=== PATIENT | female | born 1995 | race Caucasian/White ===

== ENCOUNTER → 2016-12-01 | Emergency (ER) | payer OTHER ==
[~2016-12-01] MED LIST: Azithromycin TAB* 250 MG PO ONE; Lidocaine 1% INJ* 10 MG/ML 30 ML SDV ONE; Norgestrel/Ethinyl Estrad TAB* 0.5 MG/0.05 MG PO ONE; Ondansetron ODT TAB* 4 MG PO ONE; Raltegravir* 400 MG TAB PO ONE; Tenofovir/Emtricitabine(*) TAB PO ONE; cefTRIAXone VIAL(*) 250 MG VIAL IM ONE; metroNIDAZOLE TAB* 250 MG PO ONE
[2016-12-01 12:47] VITALS: BP 133/88
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
[2016-12-01 15:51] LABS: Hematocrit 42 % (35-47); Mean Corpuscular HGB Conc 34 g/dl (31-36); Mean Corpuscular Hemoglobin 33 pg (27-31); Mean Corpuscular Volume 99 fL (80-97); Mean Platelet Volume 8 um3 (7.4-10.4); Red Blood Count 4.23 10^6/ul (4.0-5.4); Red Cell Distribution Width 13 % (10.5-15); White Blood Count 9.5 10^3/ul (3.5-10.8)
[2016-12-01 16:16] LABS: Albumin 4.5 g/dL (3.2-5.2); BUN/Creatinine Ratio 15.6 (8-20); Calcium 9.5 mg/dL (8.6-10.3); EGFR African American 101.6 (>60); Potassium 3.7 mmol/L (3.5-5.0); Total Bilirubin 0.4 mg/dL (0.2-1.0); Total Protein 7.5 g/dL (6.4-8.9)
[2016-12-01 16:56] LABS: Manual Entry Verification MD; Rapid HIV INT CONT QC Line Present; Rapid HIV Kit Lot# F209005
[2016-12-01 18:00] LABS: Urine Bilirubin Negative (Negative); Urine Glucose 2+(150 mg/dL) (Negative); Urine Nitrite Negative (Negative)
== END | disposition home or self-care (01) ==
LOC: ED 12:33
DX: Z04.41 Encounter for examination and observation following alleged adult rape (principal); S00.83XA Contusion of other part of head, initial encounter; S40.012A Contusion of left shoulder, initial encounter; S50.12XA Contusion of left forearm, initial encounter; S50.11XA Contusion of right forearm, initial encounter; S20.229A Contusion of unspecified back wall of thorax, initial encounter; S20.01XA Contusion of right breast, initial encounter; S30.1XXA Contusion of abdominal wall, initial encounter; S70.02XA Contusion of left hip, initial encounter; S70.01XA Contusion of right hip, initial encounter; S80.02XA Contusion of left knee, initial encounter; S80.01XA Contusion of right knee, initial encounter; Y09 Assault by unspecified means; Y92.89 Other specified places as the place of occurrence of the external cause
CPT/HCPCS: 36415; 80053; 81003; 84702; 85025; 86703; 86803; 87340; 87491; 87591; 99284; A9270-GY; J0696

== ENCOUNTER 2016-12-29 21:40 | Inpatient (IN) | payer OTHER ==
[2016-12-29 22:02] LABS: Hematocrit 43 % (35-47); Hemoglobin 14.3 g/dl (12.0-16.0); Mean Corpuscular HGB Conc 33 g/dl (31-36); Mean Corpuscular Hemoglobin 33 pg (27-31); Mean Corpuscular Volume 98 fL (80-97); Mean Platelet Volume 8 um3 (7.4-10.4); Red Blood Count 4.35 10^6/ul (4.0-5.4); Red Cell Distribution Width 13 % (10.5-15); White Blood Count 5.9 10^3/ul (3.5-10.8)
[2016-12-29 22:18] LABS: Acetaminophen < 15 mcg/mL; Alcohol 258 mg/dL (<10); Salicylate < 2.50 mg/dL (<30)
[2016-12-29 22:20] LABS: ALT 15 U/L (7-52); AST 22 U/L (13-39); Albumin 4.2 g/dL (3.2-5.2); Alkaline Phosphatase 62 U/L (34-104); Anion Gap 8 mmol/L (2-11); BUN/Creatinine Ratio 10.3 (8-20); Blood Urea Nitrogen 8 mg/dL (6-24); CO2 Carbon Dioxide 22 mmol/L (22-32); Calcium 8.5 mg/dL (8.6-10.3); Chloride 109 mmol/L (101-111); EGFR African American 119.9 (>60); EGFR Non-African American 93.2 (>60); Globulin 3.1 g/dL (2-4); Glucose 93 mg/dL (70-100); Potassium 3.7 mmol/L (3.5-5.0); Sodium 139 mmol/L (133-145); Total Protein 7.3 g/dL (6.4-8.9)
[2016-12-29 22:29] LABS: TSH (Thyroid Stimulating Horm) 1.68 mcIU/mL (0.34-5.60)
--- NOTE | 2016-12-30 00:01 | ED ---
Karina Ortega Claudia, scribed for Benedicto Sanz MD on 12/29/16 at 2143 . Psychiatric Complaint - HPI Summary HPI Summary: 21 year old female presents to the ED via [place] [facility] with manic Sx. PMHx of depression is noted. Pt is visibly stuporous. Pt has a superficial laceration to her right arm from cutting herself with a razor blade. 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 Level 5 stuporous - History Of Current Complaint Hx Obtained From: EMS, Other: - [place] Onset/Duration: Sudden Onset, Lasting Hours, Still Present Timing: Intermittent Episode Lasting Character: Manic - Allergies/Home Medications Allergies/Adverse Reactions: Allergies Allergy/AdvReac Type Severity Reaction Status Date / Time Amoxicillin Allergy Severe Rash And Verified 12/01/16 12:37 Itching PMH/Surg Hx/FS Hx/Imm Hx Previously Healthy: Yes Endocrine/Hematology History: Reports: Hx Unexplained Bleeding - pt states she bruises easily Denies: Hx Anticoagulant Therapy Cardiovascular History: Denies: Hx Hypertension Respiratory History: Denies: Hx Asthma Neurological History: Reports: Other Neuro Impairments/Disorders - Neurogenic syncope Psychiatric History: Reports: Hx Depression - Immunization History Date of Tetanus Vaccine: UTD Date of Influenza Vaccine: 2014 - Family History Known Family History: Negative: Cardiac Disease, Hypertension, Diabetes - Social History Occupation: Student Alcohol Use: Occasionally Alcohol Amount: Recently quit - used to drink daily Hx Substance Use: Yes Substance Use Type: Reports: Marijuana Substance Use Comment - Amount & Last Used: daily Hx Tobacco Use: No Smoking Status (MU): Never Smoked Tobacco Review of Systems - ROS Summary Review of Systems Summary: level 5 caveat stuporous Negative: Fever Eyes: Negative ENT: Negative Cardiovascular: Negative Respiratory: Negative Gastrointestinal: Negative Genitourinary: Negative Musculoskeletal: Negative Skin: Negative Neurological: Negative Positive: Other - manic All Other Systems Reviewed And Are Negative: Yes Physical Exam - Summary Physical Exam Summary: Level 5 caveat- stuporous Triage Information Reviewed: Yes Vital Signs On Initial Exam: Initial Vitals Temp Pulse Resp BP Pulse Ox 98.4 F 70 18 124/73 97 12/29/16 22:03 12/29/16 22:03 12/29/16 22:03 12/29/16 22:03 12/29/16 22:03 Vital Signs Reviewed: Yes Appearance: Positive: Well-Appearing, No Pain Distress Skin: Positive: Warm, Skin Color Reflects Adequate Perfusion, Dry, Other - multiple linear not full thickness superficial abrasions to her left upper arm with no active bleeding Head/Face: Positive: Normal Head/Face Inspection Eyes: Positive: EOMI, ESTEPHANIA ENT: Positive: Normal ENT inspection Neck: Positive: Supple, Nontender Respiratory/Lung Sounds: Positive: Clear to Auscultation, Breath Sounds Present Cardiovascular: Positive: RRR Abdomen Description: Positive: Nontender, Soft Musculoskeletal: Positive: Normal, Strength/ROM Intact Neurological: Positive: Normal, Sensory/Motor Intact, Alert, Oriented to Person Place, Time Psychiatric: Positive: Affect/Mood Appropriate Diagnostics - Vital Signs Vital Signs Temp Pulse Resp BP Pulse Ox 12/29/16 22:03 98.4 F 70 18 124/73 97 - Laboratory Lab Results: Lab Results 12/29/16 12/29/16 Range/Units 21:50 21:50 WBC 5.9 (3.5-10.8) 10^3/ul RBC 4.35 (4.0-5.4) 10^6/ul Hgb 14.3 (12.0-16.0) g/dl Hct 43 (35-47) % MCV 98 H (80-97) fL MCH 33 H (27-31) pg MCHC 33 (31-36) g/dl RDW 13 (10.5-15) % Plt Count 245 (150-450) 10^3/ul MPV 8 (7.4-10.4) um3 Neut % (Auto) 49.6 (38-83) % Lymph % (Auto) 38.1 (25-47) % Colbert % (Auto) 9.9 H (1-9) % Eos % (Auto) 1.5 (0-6) % Baso % (Auto) 0.9 (0-2) % Absolute Neuts (auto) 2.9 (1.5-7.7) 10^3/ul Absolute Lymphs (auto) 2.2 (1.0-4.8) 10^3/ul Absolute Monos (auto) 0.6 (0-0.8) 10^3/ul Absolute Eos (auto) 0.1 (0-0.6) 10^3/ul Absolute Basos (auto) 0.1 (0-0.2) 10^3/ul Absolute Nucleated RBC 0.01 10^3/ul Nucleated RBC % 0.1 Sodium 139 (133-145) mmol/L Potassium 3.7 (3.5-5.0) mmol/L Chloride 109 (101-111) mmol/L Carbon Dioxide 22 (22-32) mmol/L Anion Gap 8 (2-11) mmol/L BUN 8 (6-24) mg/dL Creatinine 0.78 (0.51-0.95) mg/dL Est GFR ( Amer) 119.9 (>60) Est GFR (Non-Af Amer) 93.2 (>60) BUN/Creatinine Ratio 10.3 (8-20) Glucose 93 (70-100) mg/dL Calcium 8.5 L (8.6-10.3) mg/dL Total Bilirubin 0.20 (0.2-1.0) mg/dL AST 22 (13-39) U/L ALT 15 (7-52) U/L Alkaline Phosphatase 62 (34-104) U/L Total Protein 7.3 (6.4-8.9) g/dL Albumin 4.2 (3.2-5.2) g/dL Globulin 3.1 (2-4) g/dL Albumin/Globulin Ratio 1.4 (1-3) TSH 1.68 (0.34-5.60) mcIU/mL Beta HCG, Quant < 0.60 mIU/mL Salicylates < 2.50 (<30) mg/dL Acetaminophen < 15 mcg/mL Serum Alcohol 258 H (<10) mg/dL Result Diagrams: 12/29/16 21:50 12/29/16 21:50 Lab Statement: Any lab studies that have been ordered have been reviewed, and results considered in the medical decision making process. Course/Dx - Course Assessment/Plan: MHE PENDING AT SHIFT CHANGE STABLE - Differential Dx/Clinical Impression Provider Diagnosis: Mental health problem - Physician Notifications Patient Is Medically Stable For: Psych Evaluation - 22:00 Discharge - Discharge Plan Condition: Stable Disposition: HOME Referrals: [facility] [Primary Care Provider] - The documentation as recorded by the Karina gaffney Claudia accurately reflects the service I personally performed and the decisions made by me, Benedicto Sanz MD.
--- NOTE | 2016-12-30 15:35 | CONSULT ---
Consult Consult: Gloria Hair had some upsetting news yesterday and presented to the ED after having cut herself. She was medically cleared on a previous shift and underwent a MHE. They felt that for her own safety she should be involuntarily admitted to the Unit. I agreed for her safety and she was admitted in stable condition with a diagnosis of depression and adjustment disorder.
[2016-12-30] MEDS: Tenofovir/Emtricitabine(*) TAB PO SCH (18:05)
[2016-12-30] MEDS: buPROPion SR TAB.SR* 150 MG PO SCH (18:05)
[2016-12-30] MEDS: ETH ESTRADIOL PO SCH (18:06)
[2016-12-30] MEDS: LEVONORGESTREL PO SCH (18:06)
[2016-12-30] MEDS: Raltegravir* 400 MG TAB PO SCH (21:16)
[2016-12-30] MEDS: diPHENhydraMINE PO* 50 MG PO PRN (21:18)
[2016-12-31] MEDS: Raltegravir* 400 MG TAB PO SCH (09:18)
[2016-12-31] MEDS: buPROPion SR TAB.SR* 150 MG PO SCH (09:19)
[2016-12-31] MEDS: Tenofovir/Emtricitabine(*) TAB PO SCH (09:20)
[2016-12-31] MEDS: LEVONORGESTREL PO SCH (09:22)
[2016-12-31] MEDS: ETH ESTRADIOL PO SCH (09:22)
[2016-12-31] MEDS: diPHENhydraMINE PO* 50 MG PO PRN (20:19)
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
[2017-01-01] MEDS: LEVONORGESTREL PO SCH (10:08)
[2017-01-01] MEDS: BuPROPion XL* 150 MG TAB.XL PO SCH (10:08)
[2017-01-01] MEDS: ETH ESTRADIOL PO SCH (10:08)
[2017-01-01] MEDS: Disulfiram TAB* 250 MG PO SCH (10:08)
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
[2017-01-01] MEDS: diPHENhydraMINE PO* 50 MG PO PRN (20:46)
[2017-01-02] MEDS: BuPROPion XL* 150 MG TAB.XL PO SCH (09:03)
[2017-01-02] MEDS: Disulfiram TAB* 250 MG PO SCH (09:04)
[2017-01-02] MEDS: ETH ESTRADIOL PO SCH (09:05)
[2017-01-02] MEDS: LEVONORGESTREL PO SCH (09:05)
--- NOTE | 2017-01-02 14:35 | PN ---
Subjective - Subjective Service Type: 84206 Hosp care 15 min low complexity Subjective: The patient is interviewed in the presence of her mom, who is visiting. The patient is tearful but cooperative and signs the Health Care Proxy that her mother brought in for her. She does complain of anxiety and requests gabapentin , however, she is counselled that more medications are not likely to be what she needs at this time. The patient continues to deny SI and remains willing to accept transfer to a drug rehab. Objective - Appearance Appearance: Well Developed/Nourished Dysmorphic Features: No Hygiene: Normal Grooming: Well Kept - Behavior Psychomotor Activities: Normal Exhibits Abnormal Movement: No - Attitude and Relatedness Attitude and Relatedness: Cooperative Eye Contact: Good - Speech Quality: Unpressured Latencies: Normal Quantity: Appropriate - Mood Patient's Decription of Mood: "Anxious" - Affect Observed Affect: Tearful Affect Consistent with: Dysphoria - Thought Process Patient's Thought Process: Coherent Thought Content: No Passive Wish, No Suicidal Planning, No Homicidal Ideation, No Paranoid Ideation - Sensorium Experiencing Hallucinations: No, Sensorium is Clear Type of Hallucinations: Visual: No, Auditory: No, Command: No - Level of Consciousness Level of Consciousness: Alert Orientation: Yes Intact, Yes Orientated to Time, Yes Orientated to Place, Yes Orientated to Person - Impulse Control Impulse Control: Tenuous - Insight and Judgement Insight and Judgement: Fair - Group Participation Particating in Group Activities: Yes - Medication Management Medication Management Adherence: Yes Assessment - Assessment Merits Inpatient Hospitalization: Consolidate Improvements, Pending Safe DC Plan 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 single, white female with a history of depression, rampant substance abuse and risky sexual and illegal behaviors admitted after cutting her own arm and making suicidal statements to friends at [facility]. Plan - Plan Treatment Plan: Name: REHAN MEDEIROS Birthdate: 1995 [id number] The patient is tolerating bupropion XL 150mg PO qam and antabuse 250mg PO qday. She continues to deny SI. She has been accepted to a women's substance abuse program in [place] and is pending transfer early next week. Parents are supportive of this plan. Continued Medication Management: Start Medication Medications: Current Medications Bupropion HCl (Wellbutrin Xl *) 150 mg PO QAM JERRELL PRN Reason: Protocol Last Admin: 01/02/17 09:03 Dose: 150 mg Diphenhydramine HCl (Benadryl Po*) 50 mg PO BEDTIME PRN PRN Reason: INSOMNIA Last Admin: 01/01/17 20:46 Dose: 50 mg Disulfiram (Antabuse Tab*) 250 mg PO DAILY [facility] Last Admin: 01/02/17 09:04 Dose: 250 mg Levonorgestrel & Eth Estradiol [Falmina 0.1-20 Mg-Mcg] 1 tab PO DAILY [facility] Last Admin: 01/02/17 09:05 Dose: Not Given - Discharge Plan Discharge Plan: Drug/Alcohol Rehab
[2017-01-02] MEDS: diPHENhydraMINE PO* 50 MG PO PRN (20:20)
[2017-01-03] MEDS: BuPROPion XL* 150 MG TAB.XL PO SCH (09:36)
[2017-01-03] MEDS: Disulfiram TAB* 250 MG PO SCH (09:37)
[2017-01-03] MEDS: ETH ESTRADIOL PO SCH (11:02)
[2017-01-03] MEDS: LEVONORGESTREL PO SCH (11:02)
[2017-01-03 12:06] LABS: Urine Bacteria Absent (Absent); Urine Bilirubin Negative (Negative); Urine Glucose Negative (Negative); Urine Nitrite Negative (Negative)
[2017-01-03 12:37] LABS: Benzodiazepine Urine Screen None Detected (None Detect)
[2017-01-03] MEDS: diPHENhydraMINE PO* 50 MG PO PRN (20:55)
[2017-01-03] MEDS ORDERED: Acetaminophen TAB* 325 MG ONE (23:11)
[2017-01-03] MEDS ORDERED: Acetaminophen TAB* 325 MG PO PRN (23:15)
[2017-01-04] MEDS: Disulfiram TAB* 250 MG PO SCH (09:31)
[2017-01-04] MEDS: BuPROPion XL* 150 MG TAB.XL PO SCH (09:31)
[2017-01-04] MEDS: ETH ESTRADIOL PO SCH (10:15)
[2017-01-04] MEDS: LEVONORGESTREL PO SCH (10:15)
--- NOTE | 2017-01-04 19:36 | PN ---
Subjective - Subjective Subjective: Rehan endorses ok mood, despite insomnia, and an upsetting interaction with her father earlier. She denies SI or urges for sib or alcohol/drug withdrawal symptoms. She remains motivated for transfer to [facility] in [place] on Thursday AM. Per staff, she re,gela adherent to unit's routines. Objective - Appearance Appearance: Healthy Appearing Dysmorphic Features: No Hygiene: Normal Grooming: Well Kept - Behavior Psychomotor Activities: Normal Exhibits Abnormal Movement: No - Attitude and Relatedness Attitude and Relatedness: Cooperative Eye Contact: Fair - Speech Quality: Unpressured Latencies: Normal Quantity: Appropriate - Mood Patient's Decription of Mood: "Okay" - Affect Observed Affect: Good - Thought Process Patient's Thought Process: Coherent, Goal Directed Thought Content: No Passive Wish, No Suicidal Planning, No Homicidal Ideation, No Paranoid Ideation - Sensorium Experiencing Hallucinations: No, Sensorium is Clear - Level of Consciousness Level of Consciousness: Alert Orientation: Yes Intact - Impulse Control Impulse Control: Intact - Insight and Judgement Insight and Judgement: Poor - Group Participation Particating in Group Activities: Yes - Medication Management Medication Management Adherence: Yes Assessment - Assessment Merits Inpatient Hospitalization: Consolidate Improvements, For Discharge Planning 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 Clinical Impression: reporting lower distress level, denying suicidality, remains motivated to go to rehab Plan - Plan Treatment Plan: Name: REHAN MEDEIROS Birthdate: 1995 [id number] Continued Medication Management: Start Medication Medications: Current Medications Acetaminophen (Tylenol Tab*) 650 mg PO Q6H PRN PRN Reason: FEVER/PAIN Bupropion HCl (Wellbutrin Xl *) 150 mg PO QAM [facility] PRN Reason: Protocol Last Admin: 01/04/17 09:31 Dose: 150 mg Diphenhydramine HCl (Benadryl Po*) 50 mg PO BEDTIME PRN PRN Reason: INSOMNIA Last Admin: 01/03/17 20:55 Dose: 50 mg Disulfiram (Antabuse Tab*) 250 mg PO DAILY [facility] Last Admin: 01/04/17 09:31 Dose: 250 mg Levonorgestrel & Eth Estradiol [Falmina 0.1-20 Mg-Mcg] 1 tab PO DAILY [facility] Last Admin: 01/04/17 10:15 Dose: Not Given - Discharge Plan Discharge Plan: Outpatient Follow Up Outpatient Program: [facility]
[2017-01-04] MEDS: traZODone TAB* 50 MG TAB PO SCH (20:27)
[2017-01-05] MEDS: LEVONORGESTREL PO SCH (10:19)
[2017-01-05] MEDS: ETH ESTRADIOL PO SCH (10:19)
[2017-01-05] MEDS: Disulfiram TAB* 250 MG PO SCH (10:29)
[2017-01-05] MEDS: BuPROPion XL* 150 MG TAB.XL PO SCH (10:29)
[2017-01-05] MEDS: Oseltamivir CAP* 75 MG PO SCH (10:29)
--- NOTE | 2017-01-05 13:01 | CONS ---
PSYCHOLOGICAL REPORT: DATE OF CONSULT: 01/02/17 REASON FOR REFERRAL: Gloria was asked to complete personality testing in order to assist with diagnostic concerns. Concerns regarding lethality are secondary to recurrent instances of delicate self mutilation characterized by cutting on her arms. Her cuts did not require stitches or sutures. The patient has history of being diagnosed with attention deficit hyperactivity disorder during teenage years. TEST ADMINISTERED: Gloria completed the [place] Multiphasic Personality Inventory- 2 (MMPI-2), and was given feedback regarding results in individual conversation. Gloria has been seen today by this grant writer twice and individual conversation was in the context of cognitive behavioral group psychotherapy. 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 She also expresses interest in literature and describes engaging in creative writing. She had been open in disclosure of relevant history and engages well in efforts to interview and assess. She identifies polysubstance abuse as the main issues in regards to her psychosocial stressors and problems. Despite her drug and alcohol use, she describes maintaining good academic standing and expressed her hopes at least initially of being discharged to return to her studies. However, in part due to her family's insistence, she is being held for transfer to an inpatient drug and alcohol treatment center. Despite her objections, Gloria expresses intention of complying with this recommendation as she is able to admit that her substance abuse and drinking have created increasing array of difficulties. Gloria is pleasant in conversation, presenting with good affect that is appropriately variable with conversation. She describes beginning to abuse prescribed stimulant medication in high school years even diverting medications that were prescribed for her brother by snorting pills and then replacing the capsules with sugar, so her brother and parents were unaware. She expresses remorse for having done this as she feels it adversely affected her brother's academic performance in high school years. Currently, Gloria describes having engaged in both recreational drug use as well as selling both marijuana and cocaine and describes increasing array of consequences secondary to such behavior. She describes often drinking to the point of blacking out, which of course has led to problematic situations and have left her vulnerable. Gloria describes prosocial future narratives, mostly tied to completion of school in a timely way and beginning to find employment. She denies suicide rumination at this point, identifying her congregation upbringing as an effective impediment to following through with any thoughts of suicide. Gloria provides distressed profile on this administration of the MMPI-2, attaining a code-type of a 4-9 response set. Although she elevates 7 of the 10 clinical indices, her more profound elevations occur on psychopathic deviated hypomania scales (T=100 on both). Persons scoring similarly in testing are described as having difficulties with impulsivity as the primary behavioral correlate. Persons with similar response sets tend to be very extraverted but perhaps superficial in relationships and have difficulties in controlling negative emotions, and tend to display hostile or irritable qualities when upset. Persons scoring significantly on hypomania scale who are generally well adjusted are described as being friendly and sociable, energetic, and enthusiastic. This sounds to describe Gloria when she is doing better, as such persons are likely to be pleasant and have an outgoing temperament. Concerns discussed with Gloria revolve around all possible consequences of continued substance abuse and how it is likely to bring both academic and even medical difficulties. She has complied with recommendations regarding being transferred on a bed-to-bed basis to an outpatient rehabilitation program in the context of needing time to begin to understand and accept rather profound lifestyle changes. It is clear that Gloria needs time to be away from having to make choices and is likely to resume substance abuse if she was discharge presently without this level of care. Gloria and her family are in full support of this recommendation with consideration for taking a medical leave and return to complete her [employer] college in the coming fall. Continuing diagnostic interests revolve around possible antisocial personality disorder traits axis II with alcohol-induced mood disorder and cannabis use disorder on [place]. [id number]/[facility] #: [id number] KLAUS
--- NOTE | 2017-01-05 14:22 | PN ---
Subjective - Subjective Service Type: 34369 Hosp care 15 min low complexity Subjective: The patient was discovered purging her food after breakfast this morning and admits that this is the second time she's done that during this admission. She has resigned herself to the idea of transferring to rehab tomorrow but is upset with her parents for their plan to drive her directly to that facility tomorrow rather than letting her go to her apartment first. She denies depressed mood or SI. Objective - Appearance Appearance: Well Developed/Nourished Dysmorphic Features: No Hygiene: Normal Grooming: Well Kept - Behavior Psychomotor Activities: Normal Exhibits Abnormal Movement: No - Attitude and Relatedness Attitude and Relatedness: Cooperative Eye Contact: Fair - Speech Quality: Unpressured Latencies: Normal Quantity: Appropriate - Mood Patient's Decription of Mood: "Fine" - Affect Observed Affect: Fair Affect Consistent with: Euthymia - Thought Process Patient's Thought Process: Coherent Thought Content: No Passive Wish, No Suicidal Planning, No Homicidal Ideation, No Paranoid Ideation - Sensorium Experiencing Hallucinations: No, Sensorium is Clear Type of Hallucinations: Visual: No, Auditory: No, Command: No - Level of Consciousness Level of Consciousness: Alert Orientation: Yes Intact, Yes Orientated to Time, Yes Orientated to Place, Yes Orientated to Person - Impulse Control Impulse Control: Tenuous - Insight and Judgement Insight and Judgement: Fair - Group Participation Particating in Group Activities: Yes - Medication Management Medication Management Adherence: Yes Assessment - Assessment Merits Inpatient Hospitalization: Consolidate Improvements, Pending Safe DC Plan 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 single, white female with a history of depression, rampant substance abuse and risky sexual and illegal behaviors admitted after cutting her own arm and making suicidal statements to friends at [facility]. Plan - Plan Treatment Plan: Name: REHAN MEDEIROS Birthdate: 1995 [id number] The patient is tolerating bupropion XL 150mg PO qam and antabuse 250mg PO qday. She continues to deny SI. She has been accepted to a women's substance abuse program in [place] and is set to transfer their tomorrow (01/06) in the morning. Parents are supportive of this plan. Will lock door for one hour s/p meals to prevent purging behaviors. Continued Medication Management: Continue Outpt Medication Medications: Current Medications Acetaminophen (Tylenol Tab*) 650 mg PO Q6H PRN PRN Reason: FEVER/PAIN Bupropion HCl (Wellbutrin Xl *) 150 mg PO QAM JERRELL PRN Reason: Protocol Last Admin: 01/05/17 10:29 Dose: 150 mg Diphenhydramine HCl (Benadryl Po*) 50 mg PO BEDTIME PRN PRN Reason: INSOMNIA Last Admin: 01/03/17 20:55 Dose: 50 mg Disulfiram (Antabuse Tab*) 250 mg PO DAILY [facility] Last Admin: 01/05/17 10:29 Dose: 250 mg Levonorgestrel & Eth Estradiol [Falmina 0.1-20 Mg-Mcg] 1 tab PO DAILY [facility] Last Admin: 01/05/17 10:19 Dose: Not Given Oseltamivir Phosphate (Tamiflu Cap*) 75 mg PO DAILY [facility] Stop: 01/14/17 09:01 Last Admin: 01/05/17 10:29 Dose: 75 mg Trazodone HCl (Desyrel Tab*) 50 mg PO BEDTIME [facility] Last Admin: 01/04/17 20:27 Dose: 50 mg - Discharge Plan Discharge Plan: Drug/Alcohol Rehab
[2017-01-05] MEDS: traZODone TAB* 50 MG TAB PO SCH (21:07)
[2017-01-06 07:46] VITALS: BP 118/68
[2017-01-06] MEDS: BuPROPion XL* 150 MG TAB.XL PO SCH (08:14)
[2017-01-06] MEDS: Disulfiram TAB* 250 MG PO SCH (08:14)
[2017-01-06] MEDS: Oseltamivir CAP* 75 MG PO SCH (08:15)
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
== END 2017-01-06 08:45 | DRG 897 ==
LOC: ED 21:40 → BSU 12-30 11:47
PROVIDERS: ADMIT Psychiatry & Neurology Psychiatry; ATTEND Psychiatry & Neurology Psychiatry
DX: F10.94 Alcohol use, unspecified with alcohol-induced mood disorder (principal); R45.851 Suicidal ideations; F12.90 Cannabis use, unspecified, uncomplicated; Y90.8 Blood alcohol level of 240 mg/100 ml or more; Z79.899 Other long term (current) drug therapy; Z88.1 Allergy status to other antibiotic agents; Z81.1 Family history of alcohol abuse and dependence; Z81.8 Family history of other mental and behavioral disorders
CPT/HCPCS: 36415; 80053; 80307; 80320; 80329; 81003; 81015; 84443; 84702; 85025; 87086; 96102; 99222; 99231; 99238; A9270-GY; G0480

== ENCOUNTER 2017-12-29 10:29 | Emergency (ER) | payer OTHER ==
[2017-12-29 12:30] VITALS: BP 113/78
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
[2017-12-29] MEDS ORDERED: Ciprofloxacin 0.3% OPTH.SOL* 2.5 ML BTL RIGHT EYE ONE (12:58)
== END 2017-12-29 13:17 | disposition home or self-care (01) ==
LOC: UCEAST 10:29
DX: H57.11 Ocular pain, right eye (principal); F41.9 Anxiety disorder, unspecified; F31.9 Bipolar disorder, unspecified; Z88.1 Allergy status to other antibiotic agents; Z72.0 Tobacco use
CPT/HCPCS: 99211; A9270-GY; G0463